=== PATIENT | female | born 1955 | race African-American/Black ===

== ENCOUNTER 2021-11-16 19:04 | Emergency (ER) | payer MEDICARE, OTHER | END 2021-11-16 21:49 | disposition home or self-care (01) | LOC: ERS 19:04 | DX: S81.802A Unspecified open wound, left lower leg, initial encounter (principal); L03.116 Cellulitis of left lower limb; W22.8XXA Striking against or struck by other objects, initial encounter; F17.210 Nicotine dependence, cigarettes, uncomplicated | CPT/HCPCS: 99283 ==